=== PATIENT | male | born 1935 | race Caucasian/White ===

== ENCOUNTER 2017-03-12 07:28 | Observation (INO) | payer OTHER ==
[~2017-03-12] VITALS: Ht 167.6 cm; Wt 81.6 kg
[~2017-03-12 07:28] MED LIST: /ADVA50050; /AMLO25TA PO; /BISO10TA PO; /GLIM4TA PO; /IPRA3SP; /MOXI40TA; ACETYLCHOLINE OPHTH SOLN 1% 2ML (MIOCHOL-E) As Ordered ONE; ALBU83IN; ASPI1TAB PO; ASPI81TA3 PO; ATEN25TA PO; ATOR40TA PO; ATOR80TA59 PO; BALANCED SALT IRRIGATION SOLUTION 500ML BAG (FOR OR EYE MACHINE) As Ordered ONE; CEFUROXIME 1MG/0.1ML INTRACAMERAL INJ As Ordered ONE; CLOP75TA2 PO; CYCLOPENTOLATE 2% OPHTH SOLN 2ML BTL OS ONE; GLIP5TAB8 PO; GLUC5TAB3 PO; HEALON DUET (HEALON 10MG/ML 0.55ML & HEALON ENDOCOAT 30MG/ML 0.85ML) As Ordered ONE; INSULANT SC; ISOS30BRAN; JENT2.5T5 PO; LIDOCAINE 1% SDV 5 ML VIAL As Ordered ONE; LIDOCAINE 4% INJ 5 ML AMP OU ONE; LISI10TA4; METF500T PO; NITR0.4S; NITR2OI TOP; OFLOXACIN 0.3 % (OCUFLOX) OPTH SOL 5ML OS ONE; PANT40TA2 PO; PHENYLEPHRINE 2.5% OPHTH SOL 2ML OS ONE; POVIDONE-IODINE 5% OPHTH PREP SOL 30ML As Ordered ONE; PRED10TA2; PRED20TA; RAMI10CA PO; RAMI5CA PO; SIMV40TA2 PO; TOPR25TA; TROPICAMIDE 1% OPHTH SOLN 2ML OS ONE
[2017-03-12] MEDS ORDERED: LR 500 ML IV ONE (07:45)
[2017-03-12] MEDS ORDERED: PHENYLEPHRINE 2.5% OPHTH SOL 2ML As Ordered ONE (07:51)
[2017-03-12] MEDS ORDERED: TROPICAMIDE 1% OPHTH SOLN 2ML As Ordered ONE (07:51)
[2017-03-12] MEDS ORDERED: CYCLOPENTOLATE 2% OPHTH SOLN 2ML BTL As Ordered ONE (07:51)
[2017-03-12] MEDS ORDERED: OFLOXACIN 0.3 % (OCUFLOX) OPTH SOL 5ML As Ordered ONE (07:51)
[2017-03-12] MEDS ORDERED: hydrALAZINE INJ 20 MG/ML VIAL IV ONE ×2 (08:45→09:45)
[2017-03-12] MEDS ORDERED: NITROGLYCERIN 0.4 MG SUBL TABLET SL STA (10:24)
[2017-03-12] MEDS ORDERED: amLODIPine 5 MG TAB PO ONE (10:30)
[2017-03-12] MEDS ORDERED: ACETAMINOPHEN TAB 650MG DOSE (2X325MG) PO PRN (10:30)
[2017-03-12 10:34] LABS: BASO # 0.1 K/mm3 (0.0-0.2); BASO % 0.7 % (0.0-1.0); EOS # 0.2 K/mm3 (0.0-0.50); EOS % 2.5 % (0.0-3.0); LARGE UNSTAINED CELL # 0.1 K/mm3 (0.0-0.4); LARGE UNSTAINED CELL % 1.4 % (0.0-4.0); LYMPH # 1.4 K/mm3 (1.5-4.5); LYMPH % 15.6 % (24.0-44.0); MEAN CORPUSCULAR HEMOGLOBIN 29.8 pg (27.0-33.0); MEAN CORPUSCULAR HGB CONC 33.4 g/dl (32.0-36.5); MEAN CORPUSCULAR VOLUME 89.1 fl (80.0-96.0); MONO # 0.6 K/mm3 (0.0-0.8); MONO % 7.3 % (0.0-5.0); NEUTROPHILS # 6.1 K/mm3 (1.8-7.7); NEUTROPHILS % 72.5 % (36.0-66.0); PLATELET COUNT, AUTOMATED 209 k/mm3 (150-450); RED CELL DISTRIBUTION WIDTH 13.2 % (11.5-14.5); WHITE BLOOD COUNT 8.4 K/mm3 (4.0-10.0)
[2017-03-12 10:43] LABS: INR 0.91
[2017-03-12] MEDS: ATENOLOL 25 MG TAB PO SCH (10:45)
[2017-03-12] MEDS: LISINOPRIL 10 MG TAB PO SCH ×2 (10:53→21:17)
[2017-03-12 10:58] LABS: ALBUMIN 3.6 GM/DL (3.2-5.2); ALBUMIN/GLOBULIN RATIO 1.09 (1.00-1.93); ALKALINE PHOSPHATASE 60 U/L (45-117); ALT/SGPT 23 U/L (12-78); ANION GAP 7 MEQ/L (8-16); AST/SGOT 17 U/L (15-37); BILIRUBIN,TOTAL 0.5 MG/DL (0.2-1.0); BLOOD UREA NITROGEN 16 MG/DL (7-18); CALCIUM LEVEL 8.8 MG/DL (8.8-10.2); CARBON DIOXIDE LEVEL 28 MEQ/L (21-32); CHLORIDE LEVEL 106 MEQ/L (98-107); GLOMERULAR FILTRATION RATE > 60.0 (>35); GLUCOSE, FASTING 145 MG/DL (83-110); MAGNESIUM LEVEL 1.9 MG/DL (1.8-2.4); POTASSIUM SERUM 4.5 MEQ/L (3.5-5.1); SODIUM LEVEL 141 MEQ/L (136-145); TOTAL PROTEIN 6.9 GM/DL (6.4-8.2)
--- NOTE | 2017-03-12 12:07 | ECGEPIP ---
Stationary ECG Study [facility] Test Date: 2017-03-12 Pat Name: ALVAREZ STARKS Department: Room: - Gender: M Stationary Fireman: SOL : 1935 Requested By: Judith Jordan Order Number: [id number] Reading MD: Yara Vale Measurements Intervals [place] Rate: 62 P: 63 MO: 158 QRS: 120 QRSD: 170 T: -16 QT: 457 QTc: 466 Interpretive Statements SINUS RHYTHM RIGHT BUNDLE BRANCH BLOCK AND POSSIBLE RIGHT VENTRICULAR HYPERTROPHY new LEFT POSTERIOR FASCICULAR BLOCK NEW DIFFUSE ST T WAVE ABN NEW PULM DIS PATTERN NEW PRIOR WITH Left ventricular hypertrophy DRASTICALLY CHANGES C/W 06/24/13 Electronically Signed On 03-12-2017 12:07:48 EDT by Yara Vale
[2017-03-12] MEDS ORDERED: LORazepam 2 MG/ML VIAL (J2060) IV STA (12:31)
[2017-03-12] MEDS ORDERED: NITROGLYCERIN/D5W 100MCG/ML 25 MG in APPROPRIATE DILUENT 1 EA IV SCH (13:00)
[2017-03-12] MEDS: ISOSORBIDE DIN. (ISORDIL) 20 MG TAB PO SCH ×2 (13:45→17:49)
[2017-03-12 15:30] VITALS: BP 158/68
--- NOTE | 2017-03-12 16:20 | HPEPDOC ---
General Date of Admission Mar 12, 2017 at 16:01 Chief Complaint The patient is a 81-year-old male Presented to PACU for same day Cataract surgery, which was ultimately cancelled because of Hypertension. 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 Patient presented to PACU for a same day cataract surgery. He was initially cleared by his primary care physician Dr. Tom Sr. He was noted to have been optimized at this point. Upon arrival to the PACU today he was noted to have a SBP of 250s. Anesthesia attempted to control the blood pressure with Hydralazine 5mg IV x 2 doses, but his blood pressure failed to improve. Hospitalist team was called for evaluation at that point. Upon questioning patient has noted that he is usually compliant with medications , but had failed to take his medications this morning. He follows up with his physicians regularly. He notes that his blood pressure was controlled when he saw him last week. Review of paperwork indicated his SBP was in 160s at that time. Patient denied having any visual problems, headaches, nausea, vomiting, chest pain, palpitations, shortness of breath, cough, abdominal pain, constipation, diarrhea or urinary symptoms. He denies any muscle weakness or sensory changes. Home Medications Scheduled (Jentadueto 2.5-1000 mg) 1 Tab Tab, 2.5-1,000 MG PO DAILY, (Reported) Aspirin (Aspirin 81) 81 Mg Tab, 81 MG PO DAILY, (Reported) Atenolol (Atenolol) 25 Mg Tab, 25 MG PO DAILY, (Reported) Atorvastatin Calcium (Atorvastatin Calcium) 80 Mg Tab, 80 MG PO DAILY, (Reported ) Glipizide (Glipizide) 5 Mg Tab, 5 MG PO BID, (Reported) Insulin Glargine (Lantus) 1 Units/0.01 Ml Susp, 14 UNITS SC QAM, (Reported) Pantoprazole Sodium (Pantoprazole Sodium) 40 Mg Tab, 40 MG PO BID, (Reported) Ramipril (Ramipril) 5 Mg Cap, 5 MG PO DAILY, (Reported) Allergies Coded Allergies: No Known Allergies (Verified , 03/03/17) Past Medical History Medical History CAD (s/p CABG [16 years prior], PR and Stent [2013]), Aortic valve stenosis s/p replacement (Bovine Valve 2014), Diastolic CHF, IDDM2, DLP, Hx of CVA, RYANN (not on CPAP), Hx of Alcoholism and Hx of Pancreatitis 2/2 alcohol. Surgical History Aortic valve replacement (Bovine) 2014 Family History - Non-contributory Social History - Denies the use of illicit drugs; Quit smoking; prior history of >10 pack years , History of alcohol use in the past and pancreatitis - Denies recent travel or sick contacts - Lives with - Occupation; Retired banker Review of Symptoms Other systems Constitutional: Denies weight loss, change in appetite, or recent trauma Eyes: No visual changes or eye pain Ears, Nose, Throat: Denies nose bleeds, or difficulty swallowing Cardiovascular: Denies chest pain, sweating, or orthopnea Respiratory: Denies cough, wheezing, or shortness of breath GI: Steve nausea, vomiting, abdominal pain, diarrhea or constipation : Denies pain with urination or frequency Musculoskeletal: Denies joint pain or swelling Neuro / Psych: Denies muscle weakness or sensory loss, Notes some depression because of a loss of someone close to him recently Skin: No skin rashes noted All other review of systems negative; otherwise stated in history of present illness Vital Signs - Vitals: BP 250/80, HR 50, RR 18, Sat 96%RA, Temp 97.7F - General: Lying in bed, No acute distress, Speaking in full sentences, AAOx3 - HEENT: NC, AT, PERRLA, EOMI - CVS: RRR, +S1S2, +Systolic murmur - Lungs: Fair air entry bilaterally, Clear to auscultation, No wheezing / rales / rhonchi - Abdomen: Soft, Non-distended, Non-tender, + Bowel sounds x 4 - Extremities: + PPx4, No lower extremity edema, No calf tenderness - Neuro: No focal motor or sensory deficit - Skin: No visible rashes Laboratory Data Labs 24H Laboratory Tests 2 03/12/17 08:18: Bedside Glucose (Misc Panel) 139H 03/12/17 10:23: White Blood Count 8.4, Red Blood Count 4.99, Hemoglobin 14.8, Hematocrit 44.4, Mean Corpuscular Volume 89.1, Mean Corpuscular Hemoglobin 29.8, Mean Corpuscular Hemoglobin Concent 33.4, Red Cell Distribution Width 13.2, Platelet Count 209, Neutrophils (%) (Auto) 72.5H, Lymphocytes (%) (Auto) 15.6L, Monocytes (%) (Auto) 7.3H, Eosinophils (%) (Auto) 2.5, Basophils (%) (Auto) 0.7 , Neutrophils # (Auto) 6.1, Lymphocytes # (Auto) 1.4L, Monocytes # (Auto) 0.6, Eosinophils # (Auto) 0.2, Basophils # (Auto) 0.1, Large Unclassified Cells % 1.4 , Large Unclassified Cells # 0.1, Prothrombin Time 12.3L, Prothromb Time International Ratio 0.91, Activated Partial Thromboplast Time 29.2, Anion Gap 7L , Glomerular Filtration Rate > 60.0, Blood Urea Nitrogen 16, Creatinine 0.80, Sodium Level 141, Potassium Level 4.5, Chloride Level 106, Carbon Dioxide Level 28, Calcium Level 8.8, Aspartate Amino Transf (AST/SGOT) 17, Alanine Aminotransferase (ALT/SGPT) 23, Alkaline Phosphatase 60, Total Bilirubin 0.5, Total Protein 6.9, Albumin 3.6, Magnesium Level 1.9, Total Creatine Kinase 84, Creatine Kinase MB 4.3H, Creatine Kinase MB Relative Index 5.11H, Troponin I 0.02, Albumin/Globulin Ratio 1.09 03/12/17 12:59: Bedside Glucose (Misc Panel) 130H CBC/BMP Laboratory Tests 03/12/17 10:23 Red Blood Count 4.99, Mean Corpuscular Volume 89.1, Mean Corpuscular Hemoglobin 29.8, Mean Corpuscular Hemoglobin Concent 33.4, Red Cell Distribution Width 13.2 , Neutrophils (%) (Auto) 72.5 H, Lymphocytes (%) (Auto) 15.6 L, Monocytes (%) ( Auto) 7.3 H, Eosinophils (%) (Auto) 2.5, Basophils (%) (Auto) 0.7, Neutrophils # (Auto) 6.1, Lymphocytes # (Auto) 1.4 L, Monocytes # (Auto) 0.6, Eosinophils # (Auto) 0.2, Basophils # (Auto) 0.1, Calcium Level 8.8, Aspartate Amino Transf ( AST/SGOT) 17, Alanine Aminotransferase (ALT/SGPT) 23, Alkaline Phosphatase 60, Total Bilirubin 0.5, Total Protein 6.9, Albumin 3.6 Plan / VTE VTE Prophylaxis Ordered?: Yes Plan Plan Hypertensive urgency likely 2/2 non-compliance and component of anxiety - Patient has noted that he did not take his AM dose of atenolol - He notes his blood pressure is generally controlled outside the hospital - Denies any symptoms; no visual problems, headaches, chest pain, shortness of breath or palpitations - Physical was unrevealing - First set of troponin is negative; will continue to trend - EKG noted to have T-wave inversions at III, AvF and V6 - s/p Hydralazine 5mg IV x 2 doses - Discussed case with Dr. Poole; advised to Restart Atenolol 25, Add Lisinopril 10 BID, Norvasc 5mg Daily and Nitroglycerine 0.4mg SL - Blood pressure had improved to 180s - Added Isosorbide dintrate - Will monitor in PCU setting CAD (s/p CABG [16 years prior], PR and Stent [2013]) - c/w ASA 81 and Atorvastatin - c/w Atenolol - c/w MAMADOU inhibitor (replaced Ramipril with Lisinopril) Aortic valve stenosis s/p replacement - Bovine Valve 2014 Diastolic CHF - ECHO: 10/2015 normal LV size, moderate LVH, normal LV systolic function, moderate pulmonary HTN IDDM2 - c/w long acting insulin, will substitute with Levemir 14 unit QAM - Will start ISS DLP - c/w Atovastatin Hx of CVA - c/w ASA 81 RYANN - Not on CPAP Hx of Alcoholism Hx of Pancreatitis 2/2 alcohol GERD - c/w protonix DVT prophylaxis - Will start SCDs GAURANG MANN MD Mar 12, 2017 16:20
[2017-03-12] MEDS ORDERED: GLUCAGON FOR INJ 1 MG VIAL (J1610) SC PRN (16:30)
[2017-03-12] MEDS ORDERED: DEXTROSE 50% 50 ML SYRINGE IV PRN (16:30)
[2017-03-12] MEDS ORDERED: GLUCOSE 4 GM CHEW TABLET PO PRN (16:30)
[2017-03-12] MEDS ORDERED: ALTA1CAP3 PO (16:42)
[2017-03-12] MEDS ORDERED: ATEN25TA PO (16:42)
[2017-03-12] MEDS ORDERED: ATOR80TA59 PO (16:42)
[2017-03-12] MEDS ORDERED: JENT2.5T5 PO (16:42)
[2017-03-12] MEDS ORDERED: ASPI1TAB PO (16:42)
[2017-03-12] MEDS ORDERED: ACUV0.45 OS (16:47)
[2017-03-12] MEDS ORDERED: TOBR3OPD OS (16:47)
[2017-03-12] MEDS ORDERED: PATIENT COMMENT (16:48)
[2017-03-12] MEDS: HumaLOG INSULIN (NovoLOG) PER UNIT SC SCH (17:48)
[2017-03-12 20:00] VITALS: BP 145/63
[2017-03-12] MEDS ORDERED: HumaLOG INSULIN (NovoLOG) PER UNIT SC SCH (21:00)
[2017-03-12] MEDS: PANTOPRAZOLE 40MG TAB (PROTONIX) PO SCH (21:17)
[2017-03-12] MEDS ORDERED: SLF 3 ML SYR IV PRN (23:30)
[2017-03-12 23:59] VITALS: BP 104/53
[2017-03-13 04:00] VITALS: BP 190/78
[2017-03-13 05:02] LABS: BASO % 0.5 % (0.0-1.0); EOS # 0.2 K/mm3 (0.0-0.50); EOS % 1.8 % (0.0-3.0); LARGE UNSTAINED CELL # 0.2 K/mm3 (0.0-0.4); LARGE UNSTAINED CELL % 1.8 % (0.0-4.0); LYMPH # 1.5 K/mm3 (1.5-4.5); LYMPH % 13.7 % (24.0-44.0); MEAN CORPUSCULAR HEMOGLOBIN 30.8 pg (27.0-33.0); MEAN CORPUSCULAR HGB CONC 34.5 g/dl (32.0-36.5); MEAN CORPUSCULAR VOLUME 89.3 fl (80.0-96.0); MONO # 0.8 K/mm3 (0.0-0.8); MONO % 8.1 % (0.0-5.0); NEUTROPHILS # 7.2 K/mm3 (1.8-7.7); NEUTROPHILS % 74.1 % (36.0-66.0); PLATELET COUNT, AUTOMATED 209 k/mm3 (150-450); RED CELL DISTRIBUTION WIDTH 13.4 % (11.5-14.5); WHITE BLOOD COUNT 9.8 K/mm3 (4.0-10.0)
[2017-03-13 05:19] LABS: ALBUMIN/GLOBULIN RATIO 0.94 (1.00-1.93); ALKALINE PHOSPHATASE 48 U/L (45-117); ALT/SGPT 19 U/L (12-78); ANION GAP 4 MEQ/L (8-16); AST/SGOT 13 U/L (15-37); BILIRUBIN,TOTAL 0.7 MG/DL (0.2-1.0); BLOOD UREA NITROGEN 20 MG/DL (7-18); CALCIUM LEVEL 8.7 MG/DL (8.8-10.2); CARBON DIOXIDE LEVEL 28 MEQ/L (21-32); CHLORIDE LEVEL 109 MEQ/L (98-107); CREATININE FOR GFR 0.84 MG/DL (0.70-1.30); GLOMERULAR FILTRATION RATE > 60.0 (>35); GLUCOSE, FASTING 130 MG/DL (83-110); POTASSIUM SERUM 4.1 MEQ/L (3.5-5.1); SODIUM LEVEL 141 MEQ/L (136-145); TOTAL PROTEIN 6.2 GM/DL (6.4-8.2)
[2017-03-13] MEDS: SLF 3 ML SYR IV SCH ×2 (06:32→13:06)
[2017-03-13] MEDS: ISOSORBIDE DIN. (ISORDIL) 20 MG TAB PO SCH ×2 (06:33→10:54)
[2017-03-13 08:00] VITALS: BP 154/70
[2017-03-13] MEDS: PANTOPRAZOLE 40MG TAB (PROTONIX) PO SCH (08:22)
[2017-03-13] MEDS: HumaLOG INSULIN (NovoLOG) PER UNIT SC SCH ×2 (08:22→11:50)
[2017-03-13] MEDS: LISINOPRIL 10 MG TAB PO SCH (08:23)
[2017-03-13] MEDS: ATENOLOL 25 MG TAB PO SCH (08:23)
[2017-03-13] MEDS ORDERED: amLODIPine 5 MG TAB PO SCH (09:00)
[2017-03-13] MEDS ORDERED: ATORVASTATIN 20 MG TAB PO SCH (09:00)
[2017-03-13] MEDS ORDERED: LEVEMIR (INSULIN DETEMIR) 1 UNITS/0.01ML SC SCH (09:00)
[2017-03-13] MEDS ORDERED: ASPIRIN 81 MG ENTERIC TAB PO SCH (09:00)
[2017-03-13] MEDS ORDERED: LISINOPRIL 10 MG TAB PO ONE (10:15)
[2017-03-13] MEDS ORDERED: LISI-538 PO (11:12)
[2017-03-13] MEDS ORDERED: ISOS40TASA PO (11:12)
[2017-03-13 12:00] VITALS: BP 159/67
[2017-03-13 13:06] VITALS: BP 159/67
[2017-03-13 13:50] VITALS: BP 142/66
[2017-03-13] MEDS ORDERED: HYDR10TAB PO (13:57)
[2017-03-13] MEDS ORDERED: AMLO5TAB2 PO (13:58)
[2017-03-13] MEDS ORDERED: **hydrALAZINE** 10 MG TAB PO SCH (14:00)
--- NOTE | 2017-03-13 14:57 | DSES ---
DATE OF ADMISSION: 03/12/2017 DATE OF DISCHARGE: 03/13/2017 ATTENDING PHYSICIAN: Aram Velasquez MD PRIMARY CARE PHYSICIAN: Jarad Sr MD REFERRING PHYSICIAN: None. CONSULTING PHYSICIAN: None. CONDITION ON DISCHARGE: Stable. FINAL DIAGNOSIS: Hypertensive urgency. PROCEDURES: None. HISTORY OF PRESENT ILLNESS: Patient is an 81-year-old male with a past medical history of coronary artery disease status post coronary artery bypass graft (CABG) 16 years prior, myocardial infarction (GA) and stent in 2013, aortic valve stenosis status post replacement with bovine valve in 2014, diastolic congestive heart failure (CHF), insulin-dependent diabetes mellitus type 2, dyslipidemia, history of cerebrovascular accident (CVA), obstructive sleep apnea not on continuous positive airway pressure (CPAP), history of alcoholism, and history of pancreatitis secondary to alcoholism. Patient presented to postanesthesia care unit (PACU) for same-day cataract surgery. He was initially cleared by his primary care physician, Dr. Jarad Sr. He was optimized at that point. Upon arrival to the PACU, he was noted to have a systolic blood pressure in the 250s. Anesthesia attempted to control the blood pressure with hydralazine 5 mg IV times two doses; however, it failed to improve his blood pressure. Hospitalist team was called for further evaluation. HOSPITAL COURSE: 1. Hypertensive urgency, likely secondary to noncompliance and component of anxiety. Patient noted that he did not take his morning medications upon arrival. His blood pressure generally outside of the hospital is controlled in the 160s. He denies any visual problems, headaches, chest pains, shortness of breath, or history of palpitations. Physical was unrevealing. EKG was consistent with T wave inversions in III, aVF, and V6. Troponin times three sets have been negative. Case was discussed with Dr. Poole. Patient's medication doses were adjusted from outpatient, and new medications were added. Upon discharge, patient's blood pressure was controlled with systolic of 140s and patient was advised to followup with his primary care provider. 2. Coronary artery disease status post CABG 16 years prior and GA and stent in 2013. Continue with aspirin 81 mg, atorvastatin, atenolol, and MAMADOU inhibitor. 3. Aortic valve stenosis status post replacement with bovine valve in 2014. 4. Diastolic CHF. Echocardiogram in 10/2015 revealed normal left ventricular size, moderate left ventricular hypertrophy, normal left ventricular systolic function, moderate pulmonary hypertension. 5. Insulin-dependent diabetes mellitus type 2. 6. Dyslipidemia. Continue atorvastatin. 7. History of CVA. Continue with aspirin. 8. Obstructive sleep apnea. Not on CPAP. 9. History of alcoholism. 10. History of pancreatitis secondary to alcoholism. 11. Gastroesophageal reflux disease (GERD). Continue with Protonix. 12. Deep venous thrombosis (DVT) prophylaxis. Continue with sleeve compression devices. DISCHARGE MEDICATION: Patient is being discharged home with the following medication list: Continued medications include: - aspirin 81 mg by mouth daily - atenolol 25 mg by mouth daily - atorvastatin 80 mg by mouth nightly - glipizide 5 mg by mouth twice a day - insulin glargine 14 mg subcutaneously every morning - ketorolac one drop in each eye four times a day - Protonix 40 mg by mouth twice a day - tobramycin one drop in each eye four times a day Stopped medications include: - ramipril 5 mg by mouth daily New medications prescribed include: - amlodipine 5 mg by mouth daily - hydralazine 25 mg by mouth every 8 hours - lisinopril 20 mg by mouth twice a day DISCHARGE INSTRUCTIONS: Patient has been advised to followup with his primary care provider within the next 7 days. He was advised to remain compliant with treatment plan, medications, and return to the emergency room if he experiences any problems. TIME SPENT ON DISCHARGE: 35 minutes. Edited: jr 03/14/2017 [id number]
[2017-03-13] MEDS ORDERED: LISINOPRIL 20 MG TAB PO SCH (21:00)
[2017-04-09] MEDS ORDERED: SPIR25TA2 PO (14:19)
[2017-04-09] MEDS ORDERED: FURO40TA2 PO (14:19)
[2017-04-09] MEDS ORDERED: METF500T13 PO (14:19)
== END 2017-03-13 15:52 | disposition home or self-care (01) ==
LOC: M SDC 07:28 → M PCU 15:14 → M SDC 16:00 → M PCU 16:01 → M ED INP 16:01
PROVIDERS: ADMIT Internal Medicine; ATTEND Internal Medicine
DX: I16.0 Hypertensive urgency (principal); Z53.09 Procedure and treatment not carried out because of other contraindication; H25.12 Age-related nuclear cataract, left eye; I25.10 Atherosclerotic heart disease of native coronary artery without angina pectoris; Z95.1 Presence of aortocoronary bypass graft; E11.9 Type 2 diabetes mellitus without complications; Z79.4 Long term (current) use of insulin; E78.5 Hyperlipidemia, unspecified; Z98.61 Coronary angioplasty status; Z86.73 Personal history of transient ischemic attack (TIA), and cerebral infarction without residual deficits; G47.33 Obstructive sleep apnea (adult) (pediatric); I25.2 Old myocardial infarction; Z95.2 Presence of prosthetic heart valve; F10.21 Alcohol dependence, in remission; I35.0 Nonrheumatic aortic (valve) stenosis; I50.30 Unspecified diastolic (congestive) heart failure; F41.9 Anxiety disorder, unspecified; Z79.82 Long term (current) use of aspirin; Z79.899 Other long term (current) drug therapy
CPT/HCPCS: 36415; 66984; 80053; 82550; 82553; 83735; 84484; 85025; 85610; 85730; 93005; G0378; J2060

== ENCOUNTER 2017-04-16 10:46 | Day surgery (SDC) | payer OTHER ==
[~2017-04-16] VITALS: Ht 167.6 cm; Wt 83.9 kg
[~2017-04-16 10:46] MED LIST changes: +ACETAMINOPHEN 325 MG TAB PO PRN; +ACUV0.45 OS; +ALTA1CAP3 PO; +AMLO5TAB2 PO; +FURO40TA2 PO; +HYDR10TAB PO; +ISOS40TASA PO; +LIDOCAINE 3.5 % 1ML OPHTH TOPICAL GEL OU ONE; -LIDOCAINE 4% INJ 5 ML AMP OU ONE; +LISI-538 PO; +METF500T13 PO; +PATIENT COMMENT; +PROPARACAINE 0.5% OPHTH SOL 15ML OS PRN; +SPIR25TA2 PO; +TOBR3OPD OS
[2017-04-16] MEDS ORDERED: D5W/0.2% SODIUM CHLORIDE 250 ML IV ONE (11:00)
[2017-04-16] MEDS ORDERED: fentaNYL 100 MCG/2 ML INJECTION (J3010) As Ordered ONE (12:00)
[2017-04-16] MEDS ORDERED: MIDAZOLAM INJ 2 MG/2 ML VIAL (J2250) As Ordered ONE (12:00)
[2017-04-16] MEDS ORDERED: TETRACAINE 0.5% OPHTH SOLN 4ML As Ordered ONE (12:04)
[2017-04-16 12:30] VITALS: BP 175/77
[2017-04-16] MEDS ORDERED: AcetaZOLAMIDE 500 MG ER CAP PO ONE (12:45)
[2017-04-16] MEDS ORDERED: TRIMETHOBENZAMIDE 300 MG CAP PO PRN (12:45)
[2017-04-16] MEDS ORDERED: KETOROLAC 0.5% OPHTH SOLN OS ONE (12:45)
--- NOTE | 2017-04-17 13:25 | RO ---
DATE OF PROCEDURE: 04/16/2017 PREPROCEDURE DIAGNOSIS: Age related nuclear cataract, left eye. POSTPROCEDURE DIAGNOSIS: Age related nuclear cataract, left eye. PROCEDURE: Phacoemulsification and posterior chamber intraocular lens implantation, left eye. The lens used was AU00T0, 21.5 diopter. SURGEON: Judith Jordan MD PAINTING MANAGER: ANESTHESIA: Topical with sedation. DESCRIPTION OF PROCEDURE: The patient was prepped and draped in the usual fashion. A lid speculum was placed between the lids. The eye was fixated. A stab incision was made to the anterior chamber, and 1% non-preserved lidocaine was instilled. Then, viscoelastic was instilled. The eye was re-fixated. A 2.75 mm sapphire keratome was used to make a clear corneal temporal limbal incision. Capsulorrhexis was begun with a 30-gauge bent needle and then carried out in a circular fashion with capsulorrhexis forceps. The lens was hydrodissected, and then the phacoemulsification unit was used to make a groove in the nucleus in two meridians. The nucleus was then cracked into four quadrants. Each quadrant was removed with the phacoemulsification unit. Any remaining cortex was removed with the irrigation and aspiration (I and A) unit. Capsular bag was refilled with viscoelastic. A posterior chamber intraocular lens was placed in the capsular bag without difficulty. Any remaining viscoelastic was removed with the I and A unit. The wound was hydrated, and Miochol and cefuroxime were instilled into the anterior chamber. The patient tolerated the procedure well and went to the recovery room in stable condition.
== END 2017-04-16 12:50 | disposition home or self-care (01) ==
LOC: M SDC 10:46
PROVIDERS: ATTEND Ophthalmology
DX: H25.12 Age-related nuclear cataract, left eye (principal); I25.10 Atherosclerotic heart disease of native coronary artery without angina pectoris; I10 Essential (primary) hypertension; I25.2 Old myocardial infarction; E78.5 Hyperlipidemia, unspecified; E11.9 Type 2 diabetes mellitus without complications; Z79.4 Long term (current) use of insulin; K21.9 Gastro-esophageal reflux disease without esophagitis; K57.32 Diverticulitis of large intestine without perforation or abscess without bleeding; F41.9 Anxiety disorder, unspecified; Z98.61 Coronary angioplasty status; Z87.891 Personal history of nicotine dependence; Z86.73 Personal history of transient ischemic attack (TIA), and cerebral infarction without residual deficits; Z79.82 Long term (current) use of aspirin; Z79.899 Other long term (current) drug therapy; J45.909 Unspecified asthma, uncomplicated
CPT/HCPCS: 66984; J2250; J3010; V2632

== ENCOUNTER 2017-05-07 08:33 | Day surgery (SDC) | payer OTHER ==
[~2017-05-07] VITALS: Ht 167.6 cm; Wt 83.9 kg
[~2017-05-07 08:33] MED LIST changes: -CYCLOPENTOLATE 2% OPHTH SOLN 2ML BTL OS ONE; +CYCLOPENTOLATE 2% OPHTH SOLN 2ML BTL XX ONE; +LR 1,000 ML IV ONE; -OFLOXACIN 0.3 % (OCUFLOX) OPTH SOL 5ML OS ONE; +OFLOXACIN 0.3 % (OCUFLOX) OPTH SOL 5ML XX ONE; -PHENYLEPHRINE 2.5% OPHTH SOL 2ML OS ONE; +PHENYLEPHRINE 2.5% OPHTH SOL 2ML XX ONE; +PROPARACAINE 0.5% OPHTH SOL 15ML OD PRN; -PROPARACAINE 0.5% OPHTH SOL 15ML OS PRN; -TROPICAMIDE 1% OPHTH SOLN 2ML OS ONE; +TROPICAMIDE 1% OPHTH SOLN 2ML XX ONE
[2017-05-07] MEDS ORDERED: fentaNYL 100 MCG/2 ML INJECTION (J3010) As Ordered ONE (10:51)
[2017-05-07] MEDS ORDERED: MIDAZOLAM INJ 2 MG/2 ML VIAL (J2250) As Ordered ONE (10:51)
[2017-05-07 11:15] VITALS: BP 174/75
[2017-05-07] MEDS ORDERED: AcetaZOLAMIDE 500 MG ER CAP PO ONE (11:15)
[2017-05-07] MEDS ORDERED: KETOROLAC 0.5% OPHTH SOLN OD ONE (11:15)
[2017-05-07] MEDS ORDERED: TRIMETHOBENZAMIDE 300 MG CAP PO PRN (11:15)
--- NOTE | 2017-05-07 11:16 | RO ---
DATE OF PROCEDURE: 05/07/2017 PREPROCEDURE DIAGNOSIS: Age related nuclear cataract right eye. POSTPROCEDURE DIAGNOSIS: Age related nuclear cataract right eye. PROCEDURE: Phacoemulsification and posterior chamber intraocular lens implantation right eye. The lens used was AU00T0, 22.0 diopters. SURGEON: Judith Jordan MD ESCORT PATIENTS: ANESTHESIA: Topical with sedation. DESCRIPTION OF PROCEDURE: The patient was prepped and draped in the usual fashion. A lid speculum was placed between the lids. The eye was fixated. A stab incision was made to the anterior chamber, and 1% non-preserved lidocaine was instilled. Then, viscoelastic was instilled. The eye was re-fixated. A 2.75 mm sapphire keratome was used to make a clear corneal temporal limbal incision. Capsulorrhexis was begun with a 30-gauge bent needle and then carried out in a circular fashion with capsulorrhexis forceps. The lens was hydrodissected, and then the phacoemulsification unit was used to make a groove in the nucleus in two meridians. The nucleus was then cracked into four quadrants. Each quadrant was removed with the phacoemulsification unit. Any remaining cortex was removed with the irrigation and aspiration (I and A) unit. Capsular bag was refilled with viscoelastic. A posterior chamber intraocular lens was placed in the capsular bag without difficulty. Any remaining viscoelastic was removed with the I and A unit. The wound was hydrated, and Miochol and cefuroxime were instilled into the anterior chamber. The patient tolerated the procedure well and went to the recovery room in stable condition.
== END 2017-05-07 11:44 | disposition home or self-care (01) ==
LOC: M SDC 08:33
PROVIDERS: ATTEND Ophthalmology
DX: H25.11 Age-related nuclear cataract, right eye (principal); I25.10 Atherosclerotic heart disease of native coronary artery without angina pectoris; I25.2 Old myocardial infarction; I10 Essential (primary) hypertension; E78.5 Hyperlipidemia, unspecified; E10.9 Type 1 diabetes mellitus without complications; J45.909 Unspecified asthma, uncomplicated; Z79.4 Long term (current) use of insulin; Z98.61 Coronary angioplasty status; K21.9 Gastro-esophageal reflux disease without esophagitis; K57.32 Diverticulitis of large intestine without perforation or abscess without bleeding; F41.9 Anxiety disorder, unspecified; Z86.73 Personal history of transient ischemic attack (TIA), and cerebral infarction without residual deficits; Z87.891 Personal history of nicotine dependence; Z79.899 Other long term (current) drug therapy
CPT/HCPCS: 66984; J2250; J3010; V2632

== ENCOUNTER → 2017-12-29 | Outpatient (CLI) | payer OTHER ==
[2017-12-29 16:43] LABS: BASO # 0.1 10^3/uL (0.0-0.2); BASO % 1.2 % (0.0-1.0); EOS # 0.2 10^3/uL (0.0-0.50); HEMATOCRIT 39.1 % (42.0-52.0); HEMOGLOBIN 13.1 g/dl (13.5-17.5); IMMATURE GRANULOCYTE % 0.2 % (0-3.0); LYMPH # 1.8 10^3/uL (1.5-4.5); LYMPH % 22.1 % (24.0-44.0); MEAN CORPUSCULAR HEMOGLOBIN 29.4 pg (27.0-33.0); MEAN CORPUSCULAR HGB CONC 33.5 g/dl (32.0-36.5); MEAN CORPUSCULAR VOLUME 87.7 fl (80.0-96.0); MONO # 0.9 10^3/uL (0.0-0.8); MONO % 10.8 % (0.0-5.0); NEUTROPHILS # 5.1 10^3/uL (1.8-7.7); NEUTROPHILS % 62.7 % (36.0-66.0); PLATELET COUNT, AUTOMATED 236 10^3/uL (150-450); RED BLOOD COUNT 4.46 10^6/uL (4.30-6.10); RED CELL DISTRIBUTION WIDTH 13.2 % (11.5-14.5); WHITE BLOOD COUNT 8.1 10^3/uL (4.0-10.0)
== END ==
LOC: M WUC 14:35
DX: R05 Cough (principal); I51.7 Cardiomegaly
CPT/HCPCS: 85025

== ENCOUNTER 2018-03-05 10:28 | Emergency (ER) | payer OTHER ==
[2018-03-05] MEDS ORDERED: NITROGLYCERIN 0.4 MG SUBL TABLET SL (10:45)
[2018-03-05 11:35] LABS: BASO # 0.1 10^3/uL (0.0-0.2); BASO % 0.6 % (0.0-1.0); EOS % 0.3 % (0.0-3.0); HEMATOCRIT 36.5 % (42.0-52.0); HEMOGLOBIN 12.5 g/dl (13.5-17.5); IMMATURE GRANULOCYTE % 0.3 % (0-3.0); LYMPH % 10.3 % (24.0-44.0); MEAN CORPUSCULAR HEMOGLOBIN 29.3 pg (27.0-33.0); MEAN CORPUSCULAR HGB CONC 34.2 g/dl (32.0-36.5); MEAN CORPUSCULAR VOLUME 85.5 fl (80.0-96.0); MONO # 1.2 10^3/uL (0.0-0.8); MONO % 11.9 % (0.0-5.0); NEUTROPHILS # 7.6 10^3/uL (1.8-7.7); NEUTROPHILS % 76.6 % (36.0-66.0); PLATELET COUNT, AUTOMATED 210 10^3/uL (150-450); RED BLOOD COUNT 4.27 10^6/uL (4.30-6.10); RED CELL DISTRIBUTION WIDTH 12.6 % (11.5-14.5); WHITE BLOOD COUNT 9.9 10^3/uL (4.0-10.0)
[2018-03-05 11:50] LABS: INR 0.97
[2018-03-05 11:57] LABS: ALBUMIN 2.9 GM/DL (3.2-5.2); ALBUMIN/GLOBULIN RATIO 0.81 (1.00-1.93); ALKALINE PHOSPHATASE 76 U/L (45-117); ALT/SGPT 26 U/L (12-78); ANION GAP 4 MEQ/L (8-16); AST/SGOT 13 U/L (7-37); BILIRUBIN,DIRECT 0.1 MG/DL (0.0-0.2); BILIRUBIN,TOTAL 0.5 MG/DL (0.2-1.0); BLOOD UREA NITROGEN 10 MG/DL (7-18); CALCIUM LEVEL 8.7 MG/DL (8.8-10.2); CARBON DIOXIDE LEVEL 32 MEQ/L (21-32); CHLORIDE LEVEL 101 MEQ/L (98-107); CPK CREATINE PHOSPHOKINASE 59 U/L (39-308); CREATININE FOR GFR 0.95 MG/DL (0.70-1.30); GLOMERULAR FILTRATION RATE > 60.0 (>35); GLUCOSE, FASTING 287 MG/DL (70-100); LIPASE 105 U/L (73-393); POTASSIUM SERUM 4.4 MEQ/L (3.5-5.1); SODIUM LEVEL 137 MEQ/L (136-145); TOTAL PROTEIN 6.5 GM/DL (6.4-8.2); TROPONIN I < 0.02 NG/ML (< 0.10)
[2018-03-05 12:03] LABS: CK-MB VALUE MASS 2.3 NG/ML (<3.6); MB/CK RELATIVE INDEX 3.89 (< OR =4); NT-PRO BNP 1414 PG/ML (<450)
[2018-03-05] MEDS: LORazepam 0.5 MG TAB PO (15:28)
[2018-03-05] MEDS ORDERED: ISOVUE-370 76% 100ML VIAL (Q9967) As Ordered (15:38)
[2018-03-05 16:24] LABS: CPK CREATINE PHOSPHOKINASE 46 U/L (39-308); TROPONIN I < 0.02 NG/ML (< 0.10)
[2018-03-05 16:25] LABS: CK-MB VALUE MASS 1.8 NG/ML (<3.6); MB/CK RELATIVE INDEX 3.91 (< OR =4)
== END 2018-03-05 17:29 | disposition home or self-care (01) ==
LOC: M ED 10:28
DX: J18.9 Pneumonia, unspecified organism (principal); R07.9 Chest pain, unspecified; R91.8 Other nonspecific abnormal finding of lung field; Z90.2 Acquired absence of lung [part of]; I51.7 Cardiomegaly; I45.10 Unspecified right bundle-branch block; R00.1 Bradycardia, unspecified; I44.0 Atrioventricular block, first degree; I50.9 Heart failure, unspecified; I25.2 Old myocardial infarction; Z86.73 Personal history of transient ischemic attack (TIA), and cerebral infarction without residual deficits; G47.30 Sleep apnea, unspecified; Z95.1 Presence of aortocoronary bypass graft; Z79.82 Long term (current) use of aspirin; Z79.4 Long term (current) use of insulin; Z79.899 Other long term (current) drug therapy
CPT/HCPCS: Q9967

== ENCOUNTER → 2018-04-06 | Outpatient (REF) | payer OTHER ==
[2018-04-06 13:11] LABS: IRON (FE) 86 UG/DL (65-175); PERCENT SATURATION 28.4 % (19.7-50.0); TOTAL IRON BINDING CAPACITY 303 UG/DL (250-450)
== END ==
LOC: M LAB REF 12:18
DX: D64.9 Anemia, unspecified (principal)
CPT/HCPCS: 83550

== ENCOUNTER 2018-06-28 18:13 | Inpatient (IN) | payer OTHER ==
[2018-06-28 18:37] LABS: BASO # 0.1 10^3/uL (0.0-0.2); BASO % 0.8 % (0.0-1.0); EOS # 0.2 10^3/uL (0.0-0.50); EOS % 2.5 % (0.0-3.0); HEMATOCRIT 41.9 % (42.0-52.0); HEMOGLOBIN 14.2 g/dl (13.5-17.5); IMMATURE GRANULOCYTE % 0.2 % (0-3.0); LYMPH # 2.1 10^3/uL (1.5-4.5); MEAN CORPUSCULAR HGB CONC 33.9 g/dl (32.0-36.5); MEAN CORPUSCULAR VOLUME 88.6 fl (80.0-96.0); MONO # 1.2 10^3/uL (0.0-0.8); MONO % 14.4 % (0.0-5.0); NEUTROPHILS # 4.8 10^3/uL (1.8-7.7); NEUTROPHILS % 57.1 % (36.0-66.0); PLATELET COUNT, AUTOMATED 247 10^3/uL (150-450); RED BLOOD COUNT 4.73 10^6/uL (4.30-6.10); RED CELL DISTRIBUTION WIDTH 13.1 % (11.5-14.5); WHITE BLOOD COUNT 8.3 10^3/uL (4.0-10.0)
[2018-06-28 18:52] LABS: BEDSIDE GLUCOSE 259 MG/DL (83-110)
[2018-06-28 18:54] LABS: INR 0.84; PROTHROMBIN TIME 11.6 SECONDS (12.1-14.4)
[2018-06-28] MEDS: hydrALAZINE INJ 20 MG/ML VIAL IV ×2 (19:36→20:22)
[2018-06-28 19:46] LABS: ALBUMIN 3.3 GM/DL (3.2-5.2); ALBUMIN/GLOBULIN RATIO 1.03 (1.00-1.93); ALKALINE PHOSPHATASE 74 U/L (45-117); ALT/SGPT 24 U/L (12-78); ANION GAP 5 MEQ/L (8-16); AST/SGOT 21 U/L (7-37); BILIRUBIN,DIRECT < 0.1 MG/DL (0.0-0.2); BILIRUBIN,TOTAL 0.3 MG/DL (0.2-1.0); BLOOD UREA NITROGEN 20 MG/DL (7-18); CALCIUM LEVEL 8.5 MG/DL (8.8-10.2); CARBON DIOXIDE LEVEL 29 MEQ/L (21-32); CHLORIDE LEVEL 106 MEQ/L (98-107); CPK CREATINE PHOSPHOKINASE 79 U/L (39-308); CREATININE FOR GFR 1.06 MG/DL (0.70-1.30); FREE T4 1.11 NG/DL (0.76-1.46); GLOMERULAR FILTRATION RATE > 60.0 (>35); GLUCOSE, FASTING 287 MG/DL (70-100); MB/CK RELATIVE INDEX 4.43 (< OR =4); POTASSIUM SERUM 4.4 MEQ/L (3.5-5.1); SODIUM LEVEL 140 MEQ/L (136-145); TOTAL PROTEIN 6.5 GM/DL (6.4-8.2); TROPONIN I < 0.02 NG/ML (< 0.10)
[2018-06-28] MEDS: NITROGLYCERIN 2% OINT 1 GM *U/D* PKT TOP (20:21)
[2018-06-28] MEDS: ASPIRIN 81 MG CHEW TABLET PO ×2 (20:22→20:31)
[2018-06-28 22:51] LABS: CPK CREATINE PHOSPHOKINASE 57 U/L (39-308); MB/CK RELATIVE INDEX 5.44 (< OR =4); TROPONIN I < 0.02 NG/ML (< 0.10)
[2018-06-29] MEDS ORDERED: GLUCAGON FOR INJ 1 MG VIAL (J1610) SC (01:30)
[2018-06-29] MEDS ORDERED: GLUCOSE 4 GM CHEW TABLET PO (01:30)
[2018-06-29] MEDS ORDERED: DEXTROSE 50% 50 ML SYRINGE IV (01:30)
[2018-06-29 07:57] LABS: BEDSIDE GLUCOSE 239 MG/DL (83-110)
[2018-06-29] MEDS: ASPIRIN 81 MG ENTERIC TAB PO (08:40)
[2018-06-29] MEDS: FUROSEMIDE 40 MG TAB PO (08:40)
[2018-06-29] MEDS: SPIRONOLACTONE 25 MG TAB PO (08:40)
[2018-06-29] MEDS: LEVEMIR (INSULIN DETEMIR) 1 UNITS/0.01ML SC (08:40)
[2018-06-29] MEDS: glipiZIDE (GLUCOTROL) 5 MG TAB PO ×2 (08:40→18:51)
[2018-06-29] MEDS: LISINOPRIL 20 MG TAB PO ×2 (08:41→21:00)
[2018-06-29] MEDS: amLODIPine 10 MG TAB PO (08:41)
[2018-06-29] MEDS: HumaLOG INSULIN (NovoLOG) PER UNIT SC ×4 (08:41→21:00)
[2018-06-29] MEDS ORDERED: PROHANCE 279.3MG/ML 15ML VIAL (A9576) As Ordered ×2 (10:23)
[2018-06-29 12:56] LABS: BEDSIDE GLUCOSE 195 MG/DL (83-110)
[2018-06-29 15:30] LABS: HEMATOCRIT 40.9 % (42.0-52.0); HEMOGLOBIN 13.9 g/dl (13.5-17.5); MEAN CORPUSCULAR HEMOGLOBIN 29.5 pg (27.0-33.0); MEAN CORPUSCULAR VOLUME 86.8 fl (80.0-96.0); PLATELET COUNT, AUTOMATED 243 10^3/uL (150-450); RED BLOOD COUNT 4.71 10^6/uL (4.30-6.10); RED CELL DISTRIBUTION WIDTH 13.1 % (11.5-14.5); WHITE BLOOD COUNT 9.5 10^3/uL (4.0-10.0)
[2018-06-29 15:52] LABS: MAGNESIUM LEVEL 1.9 MG/DL (1.8-2.4)
[2018-06-29 15:53] LABS: ANION GAP 7 MEQ/L (8-16); BLOOD UREA NITROGEN 18 MG/DL (7-18); CARBON DIOXIDE LEVEL 28 MEQ/L (21-32); CHLORIDE LEVEL 106 MEQ/L (98-107); CREATININE FOR GFR 1.03 MG/DL (0.70-1.30); GLOMERULAR FILTRATION RATE > 60.0 (>35); GLUCOSE, FASTING 180 MG/DL (70-100); POTASSIUM SERUM 4.5 MEQ/L (3.5-5.1); SODIUM LEVEL 141 MEQ/L (136-145)
[2018-06-29 15:59] LABS: CHOLESTEROL LEVEL 260 MG/DL (<200); CHOLESTEROL RISK RATIO 6.666 (<5); HDL CHOLESTEROL 39 MG/DL (>40); LDL CHOLESTEROL 165 MG/DL (<100); NON-HDL-C 221 MG/DL; TRIGLYCERIDES LEVEL 279 MG/DL (<150)
[2018-06-29 16:02] LABS: TROPONIN I < 0.02 NG/ML (< 0.10)
[2018-06-29 16:05] LABS: ESTIMATED AVERAGE GLUCOSE 220 MG/DL (60-110); HEMOGLOBIN A1c 9.3 %
[2018-06-29] MEDS ORDERED: SLF 3 ML SYR IV (16:45)
[2018-06-29 18:35] LABS: BEDSIDE GLUCOSE 262 MG/DL (83-110)
[2018-06-29] MEDS: ATORVASTATIN 20 MG TAB PO (21:50)
[2018-06-29 21:51] LABS: BEDSIDE GLUCOSE 153 MG/DL (83-110)
[2018-06-29] MEDS: SLF 3 ML SYR IV (21:51)
[2018-06-30] MEDS: ACETAMINOPHEN TAB 650MG DOSE (2X325MG) PO ×2 (00:59→19:28)
[2018-06-30] MEDS: SLF 3 ML SYR IV ×3 (05:24→22:00)
[2018-06-30 07:38] LABS: BEDSIDE GLUCOSE 187 MG/DL (83-110)
[2018-06-30] MEDS: LISINOPRIL 20 MG TAB PO ×2 (07:53→19:31)
[2018-06-30] MEDS: FUROSEMIDE 40 MG TAB PO (07:53)
[2018-06-30] MEDS: ASPIRIN 81 MG ENTERIC TAB PO (07:54)
[2018-06-30] MEDS: amLODIPine 10 MG TAB PO (07:54)
[2018-06-30] MEDS: glipiZIDE (GLUCOTROL) 5 MG TAB PO ×2 (07:54→17:47)
[2018-06-30] MEDS: SPIRONOLACTONE 25 MG TAB PO (07:54)
[2018-06-30] MEDS: LEVEMIR (INSULIN DETEMIR) 1 UNITS/0.01ML SC (07:55)
[2018-06-30] MEDS: HumaLOG INSULIN (NovoLOG) PER UNIT SC ×4 (07:55→19:31)
[2018-06-30 11:30] LABS: BEDSIDE GLUCOSE 234 MG/DL (83-110)
[2018-06-30] MEDS: FLUBLOK(EGG FREE)(QUAD)INFLUENZA VACC 0.5ML SYRINGE (90682)18YRS&OLDER IM (12:27)
[2018-06-30 16:51] LABS: BEDSIDE GLUCOSE 146 MG/DL (83-110)
[2018-06-30 19:24] LABS: BEDSIDE GLUCOSE 152 MG/DL (83-110)
[2018-06-30] MEDS: ATORVASTATIN 20 MG TAB PO (19:31)
[2018-07-01] MEDS: ACETAMINOPHEN TAB 650MG DOSE (2X325MG) PO
[2018-07-01] MEDS: SLF 3 ML SYR IV (05:38)
[2018-07-01 07:08] LABS: HEMATOCRIT 40.2 % (42.0-52.0); HEMOGLOBIN 13.6 g/dl (13.5-17.5); MEAN CORPUSCULAR HEMOGLOBIN 29.3 pg (27.0-33.0); MEAN CORPUSCULAR HGB CONC 33.8 g/dl (32.0-36.5); MEAN CORPUSCULAR VOLUME 86.6 fl (80.0-96.0); PLATELET COUNT, AUTOMATED 238 10^3/uL (150-450); RED BLOOD COUNT 4.64 10^6/uL (4.30-6.10); RED CELL DISTRIBUTION WIDTH 13.1 % (11.5-14.5); WHITE BLOOD COUNT 8.4 10^3/uL (4.0-10.0)
[2018-07-01 07:25] LABS: ANION GAP 4 MEQ/L (8-16); BLOOD UREA NITROGEN 19 MG/DL (7-18); CALCIUM LEVEL 8.5 MG/DL (8.8-10.2); CARBON DIOXIDE LEVEL 27 MEQ/L (21-32); CHLORIDE LEVEL 106 MEQ/L (98-107); CREATININE FOR GFR 0.89 MG/DL (0.70-1.30); GLOMERULAR FILTRATION RATE > 60.0 (>35); GLUCOSE, FASTING 203 MG/DL (70-100); POTASSIUM SERUM 4.4 MEQ/L (3.5-5.1); SODIUM LEVEL 137 MEQ/L (136-145)
[2018-07-01] MEDS: HumaLOG INSULIN (NovoLOG) PER UNIT SC ×2 (07:48→12:16)
[2018-07-01] MEDS: glipiZIDE (GLUCOTROL) 5 MG TAB PO (07:48)
[2018-07-01] MEDS: LEVEMIR (INSULIN DETEMIR) 1 UNITS/0.01ML SC (09:20)
[2018-07-01] MEDS: amLODIPine 10 MG TAB PO (09:21)
[2018-07-01] MEDS: SPIRONOLACTONE 25 MG TAB PO (09:22)
[2018-07-01] MEDS: ASPIRIN 81 MG ENTERIC TAB PO (09:22)
[2018-07-01] MEDS: LISINOPRIL 20 MG TAB PO (09:22)
[2018-07-01] MEDS: FUROSEMIDE 40 MG TAB PO (09:22)
[2018-07-01 12:13] LABS: BEDSIDE GLUCOSE 188 MG/DL (83-110)
== END 2018-07-01 14:05 | disposition home or self-care (01) | DRG 69 ==
LOC: M ED INP 06-29 01:21 → M PCU 06-29 15:57 → M ED 18:13
DX: G45.9 Transient cerebral ischemic attack, unspecified (principal); I10 Essential (primary) hypertension; E11.9 Type 2 diabetes mellitus without complications; R00.1 Bradycardia, unspecified; I25.10 Atherosclerotic heart disease of native coronary artery without angina pectoris; E78.5 Hyperlipidemia, unspecified; Z86.73 Personal history of transient ischemic attack (TIA), and cerebral infarction without residual deficits; Z79.82 Long term (current) use of aspirin; Z79.899 Other long term (current) drug therapy

== ENCOUNTER → 2018-12-07 | Outpatient (REF) | payer OTHER ==
[~2018-12-07] MED LIST changes: -/ADVA50050; -/AMLO25TA PO; -/BISO10TA PO; -/GLIM4TA PO; -/IPRA3SP; -/MOXI40TA; -ACETAMINOPHEN 325 MG TAB PO PRN; -ACETYLCHOLINE OPHTH SOLN 1% 2ML (MIOCHOL-E) As Ordered ONE; +ADVA1AER2; +AK-T0.3S OS; +AMAR1TAB6 PO; +AMLO10TA5 PO; -AMLO5TAB2 PO; +AMLO5TAB6 PO; +ASPI-222 PO; +ATRO1SOL13; +AUGM875T28 PO; +AVEL1TAB2; -BALANCED SALT IRRIGATION SOLUTION 500ML BAG (FOR OR EYE MACHINE) As Ordered ONE; -CEFUROXIME 1MG/0.1ML INTRACAMERAL INJ As Ordered ONE; -CYCLOPENTOLATE 2% OPHTH SOLN 2ML BTL XX ONE; -HEALON DUET (HEALON 10MG/ML 0.55ML & HEALON ENDOCOAT 30MG/ML 0.85ML) As Ordered ONE; -LIDOCAINE 1% SDV 5 ML VIAL As Ordered ONE; -LIDOCAINE 3.5 % 1ML OPHTH TOPICAL GEL OU ONE; -LR 1,000 ML IV ONE; +METO-1; +NORV2TAB PO; -OFLOXACIN 0.3 % (OCUFLOX) OPTH SOL 5ML XX ONE; -PANT40TA2 PO; +PANT40TA3 PO; -PHENYLEPHRINE 2.5% OPHTH SOL 2ML XX ONE; -POVIDONE-IODINE 5% OPHTH PREP SOL 30ML As Ordered ONE; -PROPARACAINE 0.5% OPHTH SOL 15ML OD PRN; +RAMI1CAP24 PO; -RAMI5CA PO; +SPIR-10 PO; -SPIR25TA2 PO; -TOBR3OPD OS; -TOPR25TA; -TROPICAMIDE 1% OPHTH SOLN 2ML XX ONE; +ZEBE1TAB PO
[2018-12-07 17:17] LABS: C REACTIVE PROTEIN QUANTITATIV < 0.30 MG/DL (0.00-0.30); URIC ACID 3.8 MG/DL (3.5-7.2)
== END ==
LOC: M LAB REF 16:38
PROVIDERS: ATTEND Nurse Practitioner Family
DX: M79.671 Pain in right foot (principal)

== ENCOUNTER → 2018-12-11 | Outpatient (REF) | payer OTHER ==
[~2018-12-11] MED LIST changes: -ASPI1TAB PO; +ASPI81TA26 PO
== END ==
LOC: M LAB REF 17:44
PROVIDERS: ATTEND Nurse Practitioner Family
DX: L02.612 Cutaneous abscess of left foot (principal)

== ENCOUNTER → 2019-02-04 | Outpatient (REF) | payer OTHER | LOC: M LAB REF 17:03 | PROVIDERS: ATTEND Nurse Practitioner Family | DX: L02.612 Cutaneous abscess of left foot (principal) ==

== ENCOUNTER → 2019-02-24 | Outpatient (CLI) | payer MEDICARE, OTHER ==
[~2019-02-24] MED LIST changes: +PLAV1TAB2 PO
--- NOTE | 2019-02-24 13:36 | REP ---
Bilateral lower extremity arterial duplex ultrasonography Right lower extremity: Right brachial artery peak systole 180 mmHg Right dorsalis pedis peak systole 140 mmHg. VETERINARY SCIENCE TEACHER peak systole 90 mmHg. Right AVA: 0.8 Peak Systolic Phasicity Velocity QUANTITATIVE RESEARCH ANALYST 135.1 biphasic Profunda 165.4 biphasic SFA prox 128.9 by biphasic SFA mid 302.4 monophasic SFA dist 96.4 monophasic Pop 37.6 monophasic JAYCEE prox 160.5 monophasic Tib/P tr 81 monophasic VETERINARY SCIENCE TEACHER pr 41.6 monophasic VETERINARY SCIENCE TEACHER dst 11.9 monophasic JAYCEE dst 43.1 monophasic Left lower extremity: Left brachial artery peak systole 180 mmHg. Left dorsalis pedis peak systole 90 mmHg. VETERINARY SCIENCE TEACHER peak systole: 80 mmHg AVA: 0.5 Peak Systolic Phasicity Velocity QUANTITATIVE RESEARCH ANALYST 115.7 triphasic Profunda 138.1 biphasic SFA prox 131.4 monophasic SFA mid 106 monophasic SFA dist 17.8 monophasic Pop 83.1 monophasic JAYCEE prox 49.6 monophasic Tib/P tr 34.9 monophasic VETERINARY SCIENCE TEACHER pr 16.3 monophasic VETERINARY SCIENCE TEACHER dst 13.1 monophasic JAYCEE dst 111.9 monophasic There is significant atheromatous plaque throughout the lower extremities bilaterally. On the right there are monophasic waveforms from the mid SFA distally. On the left there are monophasic wave forms from the proximal SFA distally. There are focal stenoses on the right at the mid SFA and at the proximal JAYCEE. A feeding vessel is identified at the right tibia - peroneal trunk. The the ABIs are abnormal bilaterally. Electronically Signed by Eric Neal MD 02/24/2019 01:28 P
== END ==
LOC: M RAD 09:49
PROVIDERS: ATTEND Surgery Vascular Surgery
DX: I70.235 Atherosclerosis of native arteries of right leg with ulceration of other part of foot (principal); I70.202 Unspecified atherosclerosis of native arteries of extremities, left leg; I70.221 Atherosclerosis of native arteries of extremities with rest pain, right leg

== ENCOUNTER → 2019-02-24 | Outpatient (CLI) | payer MEDICARE, OTHER ==
[2019-02-24 13:36] LABS: BASO # 0.1 10^3/uL (0.0-0.2); BASO % 1.3 % (0.0-1.0); EOS # 0.1 10^3/uL (0.0-0.50); EOS % 1.8 % (0.0-3.0); HEMATOCRIT 37.2 % (42.0-52.0); HEMOGLOBIN 12.4 g/dl (13.5-17.5); LYMPH # 1.7 10^3/uL (1.5-4.5); LYMPH % 21.7 % (24.0-44.0); MEAN CORPUSCULAR HEMOGLOBIN 28.6 pg (27.0-33.0); MEAN CORPUSCULAR HGB CONC 33.3 g/dl (32.0-36.5); MEAN CORPUSCULAR VOLUME 85.9 fl (80.0-96.0); MONO % 12.6 % (0.0-5.0); NEUTROPHILS # 4.9 10^3/uL (1.8-7.7); NEUTROPHILS % 62.3 % (36.0-66.0); PLATELET COUNT, AUTOMATED 240 10^3/uL (150-450); RED BLOOD COUNT 4.33 10^6/uL (4.30-6.10); WHITE BLOOD COUNT 7.9 10^3/uL (4.0-10.0)
[2019-02-24 13:59] LABS: BLOOD UREA NITROGEN 28 MG/DL (7-18); CALCIUM LEVEL 9.4 MG/DL (8.8-10.2); CARBON DIOXIDE LEVEL 28 MEQ/L (21-32); CHLORIDE LEVEL 105 MEQ/L (98-107); CREATININE FOR GFR 1.19 MG/DL (0.70-1.30); GLOMERULAR FILTRATION RATE > 60.0 (>35); GLUCOSE, FASTING 147 MG/DL (70-100); POTASSIUM SERUM 4.4 MEQ/L (3.5-5.1); SODIUM LEVEL 138 MEQ/L (136-145)
== END ==
LOC: M LAB 12:37
PROVIDERS: ATTEND Surgery Vascular Surgery
DX: I70.235 Atherosclerosis of native arteries of right leg with ulceration of other part of foot (principal); I70.202 Unspecified atherosclerosis of native arteries of extremities, left leg; I70.221 Atherosclerosis of native arteries of extremities with rest pain, right leg

== ENCOUNTER → 2019-02-26 | Outpatient (CLI) | payer MEDICARE, OTHER ==
[~2019-02-26] MED LIST changes: +CLOPIDOGREL 75 MG TAB As Ordered ONE; +HEPARIN 1,000 UNITS/ML 10ML VIAL (FOR RADIOLOGY& DIALYSIS ONLY) As Ordered ONE; +ISOVUE-300 61% 50ML VIAL (Q9967) As Ordered ONE; +LIDOCAINE 2% MDV 20 ML VIAL As Ordered ONE; +MIDAZOLAM INJ 2 MG/2 ML VIAL (J2250) As Ordered ONE; +NITROGLYCERIN IN D5W 25MG/250ML (100MCG/ML) As Ordered ONE; +fentaNYL 100 MCG/2 ML INJECTION (J3010) As Ordered ONE
--- NOTE | 2019-02-26 12:14 | ROOPDOC ---
[facility] Report Of Operation Report of Operation DATE OF PROCEDURE: 02/26/19 PREPROCEDURE DIAGNOSES: Atherosclerosis of the [place] arteries of the left lower extremity with rest pain and nonhealing ulcer of the first toe POSTPROCEDURE DIAGNOSES: Same PROCEDURE: 1. Ultrasound-guided access right common femoral artery 2. Left lower extremity arteriogram and runoff with select views of the popliteal artery and tibioperoneal trunk 3. Angioplasty of the superficial femoral artery after crossing chronic total occlusion with a 6 x 200 [place] balloon 4. Stenting of the distal SFA at Won's canal with a 6 x 120 drug-coated stent 5. Stenting of the mid proximal superficial femoral artery with a 6 x 40 Innova stent 6. Post-dilation of both stents with 6 x 200 [place] balloon 7. Angioplasty of the tibioperoneal trunk with a 3 x 100 [place] balloon 8. Completion arteriograms left lower extremity 9. Minx closure right common femoral artery SURGEON: Aleshia Kendrick MD ANESTHESIA: Local anesthesia, 10 mL lidocaine. Moderate intravenous conscious sedation was supervised by Dr. Kendrick. The patient was also independently supervised by a registered nurse assigned to the Department of radiology with automated blood pressure, EKG, and pulse oximetry. The sedation record is housed permanently in the hospital information system. The following is a conscious sedation record: Start time 10:08, stop time 12: 10, Versed 1.5 mg IV, fentanyl 75 g IV, heparin 5000 units IV. IV contrast: 60 mL Isovue 300 INDICATION FOR PROCEDURE: Mr. Caraballo is a very pleasant 83-year-old gentleman with severe bilateral peripheral vascular disease, worse in the left lower extremity, with left lower extremity rest pain and nonhealing ulcer of the first toe. Risks benefits and alternatives to a left lower extremity arteriogram and potential intervention were explained to the patient and he is agreeable to proceed. We asked him to hold his metformin the day often for 48 hours after the procedure. We told him if we were to place a stent we would start Plavix postop and he is agreeable to this. He also should continue his aspirin and statin ryland y. Informed consent was obtained. INTERPRETATION: 1. The inflow to the left lower extremity is widely patent through the iliac vessels and the common femoral artery profunda. 2. The superficial femoral artery has an area of 40% stenosis in the proximal t hird, followed by a very tight stenosis of about 80% just distal stenosis focally. Additionally there is an chronic occlusion approximately 10 cm at Won's canal that reconstituted through collaterals to the proximal popliteal artery which is calcified but not heavily stenotic. 3. The main runoff in the left lower extremity is through a very narrow tibioperoneal trunk into an extremely narrow peroneal artery. The distal aspect of the artery is more widely patent and fills mostly through collaterals from t he thigh, geniculate vessels and the calf. The anterior and posterior tibial arteries occluded no other origin and do not reconstitute distally. There is a great deal of collateral circulation in the calf. 4. After angioplasty and stenting, there is less than 10% residual stenosis in the proximal and distal superficial femoral artery. Flow into the collateral system and the peroneal artery is dramatically improved. 5. We attempted to cross into the peroneal artery but were unsuccessful due to zigzagging angles of the origin of the vessels down to the peroneal origin. We were able to cross into the origin of the posterior tibial and angioplasty the tibioperoneal trunk hoping to get better inflow to the peroneal artery but this caused some spasm to the peroneal artery. Nitroglycerin was administered and shortly thereafter there was less spasm but still some present. Were hopeful this will release with time. The main runoff is still the peroneal artery but it is barely fills through collaterals with minimal flow through the origin. This is the only runoff to the foot. There are still many small collaterals throughout the calf that supply the majority of the muscle. These are feeling much better after improving inflow. PROCEDURE: The patient was brought to the angiographic suite in stable condition. His bilateral groins were prepped and draped in a sterile fashion. Sedation was administered without complication. A timeout was performed. Local anesthesia was administered to the skin and subcutaneous tissue in the right groin and a microneedle was used to access the right common femoral artery under ultrasound guidance. A wire was passed through this access and a micro-sheath was placed and flushed with saline. Glidewire was advanced into the distal aorta under fluoroscopic guidance and the sheath was exchanged using a Seldinger technique for 6 Lao sheath. The sheath was flushed with saline. An Omni flushed catheter was used to go up and over the bifurcation into the left iliac system. A quick arteriogram showed that the iliac vessels are heavily calcified but patent. We then navigated the Glidewire and the Omni flushed catheter into the superficial femoral artery and runoff of the left lower extremity was performed, noting significant stenoses at the proximal mid and distal superficial femoral artery with a 10 cm occlusion at the distal superficial femoral artery at Won's canal. Reconstitution distal to the sister's extensive chronic collateral circulation. The anterior and posterior tibial arteries were occluded near the origin and do not reconstitute. The small peroneal arteries the main runoff to the foot. There are also significant small collaterals throughout the calf that seem to be supplying the muscle. Following this, we went up and over with his lungs 45 cm 6 Lao sheath and flushed the sheath with saline. We then angioplasty in the entire SFA with a 6 x 200 [place] balloon. Following this, there was improve flow but still significant residual stenosis and heavy calcified plaque at the proximal and distal SFA. Due to the chronic total occlusion and the heavy plaque, at the distal we utilized a 6 x 1 20 drug-coated stent and post-dilated this with the [place] balloon. We also placed a 6 x 40 Innova stent in the proximal SFA with good results and rapid flow following pulse stent placements and post dilations. Next we attempted to cross into the peroneal artery for about 45 minutes. We utilized a Glidewire glide cath and 018 wire and [place] an O18 glide cath and 018 wire and an O18 angled catheter but all were unsuccessful. We then aborted this and simply angioplastied tibioperoneal trunk which is very small with a 3 x 100 [place] b [place]oon. Following this, there was some spasm in the vessel which slightly released with 200 g nitroglycerin but still had some residual spasm that should resolve with time. The patient had dramatically improve flow to the foot through collaterals as well as through the peroneal artery. We would've liked to follow up in the anterior tibial or posterior tibial, but neither were able to be crossed. This concluded her procedure and minx closure device was deployed in the left common femoral artery after exchanging back for a short 6 Lao sheath. Good hemostasis was achieved. Pressure was held for 10 minutes. Sterile dressings were applied. The patient was taken back to recovery in stable condition. ESTIMATED BLOOD LOSS: Approximately 5 mL. COMPLICATIONS: None. PLAN: Will start Plavix 75 mg daily and the patient will take this a minimum of 60 days post stenting. We will see him back in 1 week to check his groin access site. ALESHIA KENDRICK MD Feb 26, 2019 12:14
== END | disposition home or self-care (01) ==
LOC: M IRPRO 08:18
PROVIDERS: ATTEND Surgery Vascular Surgery
DX: I70.222 Atherosclerosis of native arteries of extremities with rest pain, left leg (principal); I70.245 Atherosclerosis of native arteries of left leg with ulceration of other part of foot; L97.529 Non-pressure chronic ulcer of other part of left foot with unspecified severity; I73.9 Peripheral vascular disease, unspecified; I70.92 Chronic total occlusion of artery of the extremities
CPT/HCPCS: 37226; 37228; 75710; 99152; 99153; C1725; C1760; C1769; C1874; C1876; C1887; C1894; J2250; J3010; Q9967

== ENCOUNTER → 2019-09-16 | Outpatient (REF) | payer MEDICARE, OTHER ==
[~2019-09-16] MED LIST changes: -ASPI-222 PO; +ASPI-527 PO; -CLOPIDOGREL 75 MG TAB As Ordered ONE; -HEPARIN 1,000 UNITS/ML 10ML VIAL (FOR RADIOLOGY& DIALYSIS ONLY) As Ordered ONE; -ISOVUE-300 61% 50ML VIAL (Q9967) As Ordered ONE; -LIDOCAINE 2% MDV 20 ML VIAL As Ordered ONE; -MIDAZOLAM INJ 2 MG/2 ML VIAL (J2250) As Ordered ONE; -NITROGLYCERIN IN D5W 25MG/250ML (100MCG/ML) As Ordered ONE; -fentaNYL 100 MCG/2 ML INJECTION (J3010) As Ordered ONE
[2019-09-16 14:04] LABS: APPEARANCE, URINE CLEAR (CLEAR); BACTERIA, URINE AUTO NEGATIVE (NEGATIVE); BILIRUBIN, URINE AUTO NEGATIVE (NEGATIVE); BLOOD, URINE BLOOD NEGATIVE (NEGATIVE); COLOR, URINE YELLOW (YELLOW); GLUCOSE, URINE (UA) AUTO 3+ mg/dL (NEGATIVE); KETONE, URINE AUTO NEGATIVE (NEGATIVE); LEUKOCYTE ESTERASE, URINE AUTO NEGATIVE (NEGATIVE); NITRITE, URINE AUTO NEGATIVE (NEGATIVE); PROTEIN, URINE AUTO 2+ mg/dL (NEGATIVE); RBC, URINE AUTO 0 /HPF (0-3); SPECIFIC GRAVITY URINE AUTO 1.018 (1.002-1.035); SQUAMOUS EPITHELIAL CELL UR AU 0 /HPF (0-6); UROBILINOGEN, URINE AUTO 0.2 mg/dL (0.0-2.0); WBC, URINE AUTO 0 /HPF (0-3)
== END ==
LOC: M SMT 13:21
PROVIDERS: ATTEND Nurse Practitioner Family
DX: R35.0 Frequency of micturition (principal)
CPT/HCPCS: 51798; 81001; 87086; G0463

== ENCOUNTER → 2019-10-13 | Outpatient (CLI) | payer MEDICARE, OTHER ==
--- NOTE | 2019-10-13 15:25 | REP ---
Bilateral lower extremity arterial Doppler ultrasound: Right lower extremity: Brachial peak systole: 140 mmHg Dorsalis pedis peak systole : -- mmHg SCRAP WORKER peak systole: -- mmHg AVA peak systole :-- Velocity Phasicity INSTRUCTIONAL MEDIA SERVICES TECHNICIAN the 100 over biphasic Profunda 90-151 biphasic SFA prox 117 biphasic SFA mid 94 biphasic SFA dist 91-34 monophasic Pop occluded -- JAYECE prox 8 Monophasic Tib/P tr 10 Monophasic SCRAP WORKER pr 19-53 monophasic SCRAP WORKER dst 9 monophasic JAYCEE dst 51 monophasic Left lower extremity: Brachial peak systole: 150 mmHg Dorsalis pedis peak systole : -- mmHg SCRAP WORKER peak systole: 90 mmHg AVA peak systole : 0.67 Velocity Phasicity INSTRUCTIONAL MEDIA SERVICES TECHNICIAN 94 biphasic Profunda 120 biphasic SFA prox 108 biphasic SFA mid 91-167 biphasic SFA dist 83-71 biphasic Pop 82 biphasic JAYCEE prox 111-58 biphasic Tib/P tr 120-75 mono/biphasic SCRAP WORKER pr 50 monophasic SCRAP WORKER dst 21 monophasic JAYCEE dst 16 monophasic Impression: Right lower extremity. There is severe calcified plaque with acoustic shadowing. There is mild stenosis in the proximal profunda. The right popliteal/distal SFA are occluded with revascularization from the SCRAP WORKER, however, flow is very slow. The proximal right SCRAP WORKER there is 3:1 stenosis with trickle flow at the ankle. The right distal JAYCEE demonstrates good flow velocity but the vessel size is tiny. Left lower extremity: The patient is status post angioplasty and stent of the left SFA. Left INSTRUCTIONAL MEDIA SERVICES TECHNICIAN- mid SFA is improved. There is a mid SFA 2:1 stenosis . The distal SFA stent is patent. There is biphasic flow into the tibial/peroneal trunk. There is 2:1 stenosis in the proximal JAYCEE. The left distal calf/ankle vessels are very small with trickle flow. The wave forms have improved from 02/2019. There is now biphasic flow to the tibial peroneal trunk. However, there is minimal change below this level. Electronically Signed by Eric Neal MD 10/13/2019 03:17 P
== END ==
LOC: M RAD 10:19
PROVIDERS: ATTEND Physician Assistant
DX: I73.9 Peripheral vascular disease, unspecified (principal); I10 Essential (primary) hypertension; E11.9 Type 2 diabetes mellitus without complications; Z86.73 Personal history of transient ischemic attack (TIA), and cerebral infarction without residual deficits

== ENCOUNTER → 2019-10-21 | Outpatient (CLI) | payer MEDICARE ==
[2019-10-21 12:14] LABS: HEMATOCRIT 40.5 % (42.0-52.0); HEMOGLOBIN 13.6 g/dl (13.5-17.5); MEAN CORPUSCULAR HEMOGLOBIN 29.1 pg (27.0-33.0); MEAN CORPUSCULAR HGB CONC 33.6 g/dl (32.0-36.5); MEAN CORPUSCULAR VOLUME 86.7 fl (80.0-96.0); PLATELET COUNT, AUTOMATED 224 10^3/uL (150-450); RED BLOOD COUNT 4.67 10^6/uL (4.30-6.10); WHITE BLOOD COUNT 7.4 10^3/uL (4.0-10.0)
[2019-10-21 13:03] LABS: BLOOD UREA NITROGEN 21 MG/DL (7-18); CALCIUM LEVEL 9.4 MG/DL (8.8-10.2); CARBON DIOXIDE LEVEL 30 MEQ/L (21-32); CHLORIDE LEVEL 100 MEQ/L (98-107); CREATININE FOR GFR 1.21 MG/DL (0.70-1.30); GLOMERULAR FILTRATION RATE > 60.0 (>35); GLUCOSE, FASTING 412 MG/DL (70-100); POTASSIUM SERUM 5.1 MEQ/L (3.5-5.1); SODIUM LEVEL 136 MEQ/L (136-145)
== END ==
LOC: M LAB 10:57
PROVIDERS: ATTEND Physician Assistant
DX: Z01.818 Encounter for other preprocedural examination (principal); I70.213 Atherosclerosis of native arteries of extremities with intermittent claudication, bilateral legs

== ENCOUNTER → 2020-03-13 | Outpatient (CLI) | payer MEDICARE ==
[~2020-03-13] MED LIST changes: +GLIP10TA PO; +GLIP5TAB20 PO; +ISOS10TAB PO; +ISOS20TA PO; +ISOVUE-300 61% 50ML VIAL As Ordered ONE; +LIDOCAINE 1% MDV 20ML VIAL As Ordered ONE; +MAGN400T2 PO; +MIDAZOLAM INJ 2MG/2ML VIAL (J2250 PER 1MG) As Ordered ONE; +ROSU40TA4 PO; +XARE10TA PO; +amLODIPine 5 MG TAB PO PRN; +fentaNYL 100 MCG/2 ML INJECTION (J3010) As Ordered ONE; +hydrALAZINE 20MG/ML 1ML VIAL (J0360 PER 20MG) As Ordered ONE; +hydrALAZINE 20MG/ML 1ML VIAL (J0360 PER 20MG) IV ONE; +hydrALAZINE 20MG/ML 1ML VIAL (J0360 PER 20MG) IV PRN
[2020-03-13 09:23] LABS: HEMATOCRIT 42.6 % (42.0-52.0); MEAN CORPUSCULAR HEMOGLOBIN 28.9 pg (27.0-33.0); MEAN CORPUSCULAR HGB CONC 32.9 g/dl (32.0-36.5); MEAN CORPUSCULAR VOLUME 87.8 fl (80.0-96.0); PLATELET COUNT, AUTOMATED 153 10^3/uL (150-450); RED BLOOD COUNT 4.85 10^6/uL (4.30-6.10); WHITE BLOOD COUNT 7.4 10^3/uL (4.0-10.0)
[2020-03-13 09:37] LABS: BLOOD UREA NITROGEN 22 MG/DL (7-18); CALCIUM LEVEL 9.3 MG/DL (8.8-10.2); CARBON DIOXIDE LEVEL 29 MEQ/L (21-32); CHLORIDE LEVEL 104 MEQ/L (98-107); CREATININE FOR GFR 1.06 MG/DL (0.70-1.30); GLOMERULAR FILTRATION RATE > 60.0 (>35); GLUCOSE, FASTING 266 MG/DL (70-100); POTASSIUM SERUM 4.5 MEQ/L (3.5-5.1); SODIUM LEVEL 138 MEQ/L (136-145)
--- NOTE | 2020-03-13 11:31 | ROOPDOC ---
[facility] Report Of Operation Report of Operation DATE OF PROCEDURE: 03/13/20 PREPROCEDURE DIAGNOSES: Atherosclerosis in the [place] arteries with lifestyle limiting claudication POSTPROCEDURE DIAGNOSES: Same PROCEDURE: 1. Ultrasound-guided access left common femoral artery 2. Aortoiliofemoral arteriogram 3. Selection of right common femoral artery and SFA with right lower extremity arteriogram 4. Selection of right popliteal artery with right lower extremity runoff 5. Attempt to cross chronic total occlusion right popliteal artery, aborted 6. Angioplasty right superficial femoral artery was 6 x 200 [place] balloon 7. Stent proximal and mid right superficial femoral artery with 7 x 150 Innova stent 8. Post-dilation stent right superficial femoral artery with 6 x 200 [place] balloon 9. Completion arteriograms 10. Mynx closure left common femoral artery SURGEON: Bar Kendrick MD ANESTHESIA: Local anesthesia 5 mL lidocaine. Moderate intravenous conscious sedation was supervised by Dr. Kendrick. The patient was independently monitored by a registered nurse assigned to the Department of radiology using automated blood pressure, EKG, and pulse oximetry. The detailed sedation record is permanently stored in the hospital information system. The following is the brief sedation record: Start time 09:39, stop time 10:56, Versed 2.5 mg IV, fentanyl 125 g IV, heparin 3000 units IV, hydralazine 30 mg IV. INDICATION FOR PROCEDURE: This is a very pleasant 84-year-old gentleman with lif estyle limiting claudication of the right lower extremity secondary to atherosclerosis of the [place] arteries. Risks benefits and alternatives to an arteriogram potential intervention were explained to the patient needs agreeable to proceed. Informed consent was obtained. INTERPRETATION: 1. The distal aorta and common iliac arteries are calcified with plaque but no flow-limiting stenoses are noted. There is flow into the hypogastric arteries and brisk flow through the external iliac arteries as well. 2. The right common femoral artery is mildly ectatic with plaque, but overall widely patent with no flow-limiting stenoses noted. There is mild plaque noted at the origin of the profunda but good flow through the profunda with excellent collaterals down below the knee. The SFA is patent throughout, but has an area of 40-50% stenosis in the proximal aspect of the vessel approximately 10 cm distal to the origin, and then in the mid SFA there is a focal tight stenosis of 80-90%. In the distal SFA, there are several focal stenoses of 30-40%. 3. The popliteal artery is patent at its origin, then occludes due to bulky heavy irregular plaque and then reconstitutes in the mid and distal popliteal artery from collaterals from the profunda and above the knee in the SFA. These collaterals are large and chronic. Outflow is exclusively through the peroneal artery. I do not visualize the anterior tibial artery proximally or distally. The posterior tibial artery occludes near its origin. The peroneal artery gives collaterals at the ankle to help fill the foot. There are also extensive smaller collaterals through the calf muscle as well mostly supplied by the genicular vessels. 4. After angioplasty and stenting and post-dilation of the right proximal and mid superficial femoral artery, there is widely patent flow through the vessel with no extravasation, embolization, or dissection. Prior to stenting, there were 2 flow-limiting dissections at the areas of heaviest plaque and stenosis. After angioplasty of the distal SFA, there is widely patent flow with no significant residual stenosis, embolization, extravasation, or dissection. Improve flow was noted through the collaterals after angioplasty and stenting. REPORT OF OPERATION: The patient was brought to the angiographic suite in stable condition. His bilateral groins were prepped and draped in sterile fashion. A timeout was performed. Sedation was administered without complication. The patient did not take his antihypertensives prior to the procedure this morning, so several doses of hydralazine IV were given to manage his blood pressure. This, in combination with the sedation, successfully manage the blood pressure in the early portion procedure, but towards the end of the procedure, the patient became hypertensive again, additional hydralazine was given, and we will plan to give Norvasc 5 mg in recovery as well. Local anesthesia was administered to the skin and subcutaneous tissue over the left common femoral artery. A microneedle was used to access the artery under ultrasound guidance. A wire was passed through this access and the needle was removed. A 4 [place] glide sheath was placed and flushed with saline. A Glidewire and Omni Flush catheter were advanced into the distal aorta under fluoroscopic guidance. An aortoiliofemoral arteriogram was performed, please interpretation above. We then went up and over the bifurcation with the Glidewire and the Omni Flush catheter and selected the right common femoral artery and superficial femoral artery. Right lower extremity arteriogram was performed. We then advanced the Glidewire and a [place] catheter into the distal popliteal artery and a runoff of the right low er extremity was performed. Please interpretation of these arteriograms above. He then spent about 10-15 minutes trying to cross the chronic total occlusion and irregular plaque in the proximal and mid popliteal artery. Unfortunately, despite our best efforts, we were only able to cross in a subintimal planing could not reenter the true lumen. Completion arteriograms confirm there was no extravasation. This was aborted. We then advanced a 6 x 45 destination sheath over the wire and exchanged for a short 6 Vietnamese sheath. This sheath was flushed with saline. A 6 x 200 [place] balloon was used angioplasty the length of the SFA. Three-minute inflations were performed. Distally, we had excellent patency, no embolization extravasation or dissection. In the mid and proximal aspects where there was the heaviest areas of focal stenosis, there were flow limiting dissections. A 7 x 150 Innova stent was placed across both areas and postdilated with a 6 x 200 [place] balloon. Following this, there was widely patent flow t hroughout the superficial femoral artery with improved flow into the collaterals around the knee. We then exchanged the sheath for short 6 Vietnamese sheath and flushed the sheath with saline. A Mynx closure device was deployed at the left common femoral artery under fluoroscopic guidance with good hemostasis. Pressure was held for 5 minutes postprocedure and the patient was taken recovery in stable condition after sterile dressings were applied. He tolerated the procedure and the sedation well. ESTIMATED BLOOD LOSS: Approximately 5 mL. COMPLICATIONS: None. PLAN: Okay for patient to resume his home diet and medications, including a spirin and Xarelto. He will receive 1 dose of Plavix 75 mg in recovery, but no prescription. Subsequent anticoagulation will be managed with Xarelto. We will see how the patient does with improvement of flow through the superficial femoral artery and improve flow into the collaterals around the knee. If the patient is still having significant lifestyle limiting claudication, we can consider an above-knee to below-knee bypass, but this is not a simple surgery in this patient. First, as an octogenarian with multiple medical comorbidities, he has increased morbidity and mortality. Second, he has single vessel runoff through peroneal artery with limited flow through the tibioperoneal trunk and no flow in the distal popliteal artery. This could make maintaining patency through a bypass challenging. Limited outflow can cause early failure of bypass grafts. Therefore, if the patient can manage his claudication with improved flow into his collaterals and a walking program, this would be the best option. We will discuss this with him in clinic and see how he does postprocedure. We appreciate the opportunity to purchase patent care of this patient. BAR KENDRICK MD Mar 13, 2020 11:31
[2020-03-13 11:45] VITALS: BP 192/84
[2020-03-13 13:47] VITALS: BP 167/74
== END ==
LOC: M IRPRO 08:33
PROVIDERS: ATTEND Surgery Vascular Surgery
DX: I70.211 Atherosclerosis of native arteries of extremities with intermittent claudication, right leg (principal); I70.92 Chronic total occlusion of artery of the extremities
CPT/HCPCS: 37226; 75710; 75774; 80048; 85027; 99152; 99153; C1725; C1760; C1769; C1876; C1887; C1894; J0360; J1644; J2250; J3010; Q9967

== ENCOUNTER → 2020-04-26 | Outpatient (CLI) | payer MEDICARE ==
[~2020-04-26] MED LIST changes: -AMLO10TA5 PO; +AMLO1TAB24 PO; +AMLO1TAB25 PO; -AMLO5TAB6 PO; -ISOVUE-300 61% 50ML VIAL As Ordered ONE; -LIDOCAINE 1% MDV 20ML VIAL As Ordered ONE; -MIDAZOLAM INJ 2MG/2ML VIAL (J2250 PER 1MG) As Ordered ONE; +PANT40TA29 PO; -PANT40TA3 PO; -amLODIPine 5 MG TAB PO PRN; -fentaNYL 100 MCG/2 ML INJECTION (J3010) As Ordered ONE; -hydrALAZINE 20MG/ML 1ML VIAL (J0360 PER 20MG) As Ordered ONE; -hydrALAZINE 20MG/ML 1ML VIAL (J0360 PER 20MG) IV ONE; -hydrALAZINE 20MG/ML 1ML VIAL (J0360 PER 20MG) IV PRN
--- NOTE | 2020-05-31 09:33 | REP ---
HISTORY: Atherosclerosis, peripheral vascular disease. FINDINGS: Ankle brachial indices could not be achieved on the right. There is heavy calcification. Ankle brachial indices are not felt to be accurate. It is measured on the left at 0.94. There is severe plaquing seen bilaterally. Monophasic waveforms are seen distal to the right popliteal artery and distal to the left tibioperoneal trunk. Stents are visible at the right superficial femoral artery mid level, the left mid superficial femoral artery, the left distal superficial femoral artery. The right popliteal artery is felt to be occluded and revascularized via the sural artery. Reverse flow is seen in the sural artery in the proximal JAYCEE. Stenosis is noted in the left posterior tibial artery trunk with 3:1 velocity ratio. The left posterior tibial artery is occluded and shows reversed revascularized flow distally. There is a trickle of flow in the right posterior tibial artery. BILATERAL LOWER EXTREMITY DOPPLER VELOCITY CHART PSV RIGHT (cm/s) PSV LEFT (cm/s) ENDO TECH 132 138 Profunda 168 128 Proximal SFA 133 167 Mid-SFA 76 162 Distal SFA 58 99 Popliteal Occluded/Reversed 11 109 Proximal JAYCEE Reversed 91 Tibioperoneal trunk 55 79/205 Proximal AIRCRAFT BODY REPAIRER 17 255 Distal AIRCRAFT BODY REPAIRER 9 Revascularized 44 Distal JAYCEE 18 45 MTDD
== END ==
LOC: M RAD 09:00
PROVIDERS: ATTEND Surgery Vascular Surgery
DX: I70.213 Atherosclerosis of native arteries of extremities with intermittent claudication, bilateral legs (principal)

== ENCOUNTER → 2020-06-10 | Outpatient (REF) ==
--- NOTE | 2020-06-10 11:53 | REPVR ---
PROCEDURE INFORMATION: Exam: XR Chest, 1 View Exam date and time: 06/10/2020 10:56 AM Age: 84 years old Clinical indication: Other: Morgue case; Additional info: Autopsy TECHNIQUE: Imaging protocol: XR of the chest Views: 1 view. COMPARISON: No relevant prior studies available. FINDINGS: Lungs: An area of consolidation versus a mass measuring 27 x 60 mm seen in the right mid lung. There is a questionable mass measuring 54 x 49 mm involving left mid lung. There is a questionable density overlying the left rib base. Pleural space: Unremarkable. No pleural effusion. No pneumothorax. Heart/Mediastinum: Unremarkable. No cardiomegaly. Bones/joints: There are sternal sutures. Rib fractures possibly pathologic are noted in the right posterior 3rd, 4th, 7th, 8th and 9th ribs at least. The 3rd rib at least demonstrates a gap between the fragments measuring 14 mm. The 8th and 9th ribs demonstrates suspected gaps in the ribs suspicious for lytic lesions. Soft tissues: There is extensive subcutaneous emphysema. This limits evaluation of the lung parenchyma. IMPRESSION: 1. Right-sided rib fractures possibly pathologic with possible lung masses or consolidations. 2. Extensive subcutaneous emphysema. 3. Consider CT scanning for further evaluation as the subcutaneous emphysema makes evaluation of the chest limited. 4. A critical call is not being made given the clinical history. Electronically signed by: Brian Howard On 06/10/2020 11:53:29 AM
--- NOTE | 2020-06-10 11:55 | REPVR ---
PROCEDURE INFORMATION: Exam: XR Pelvis Exam date and time: 06/10/2020 10:57 AM Age: 84 years old Clinical indication: Other: Morgue case; Additional info: Autopsy TECHNIQUE: Imaging protocol: XR pelvis. Views: 1 or 2 view. COMPARISON: No relevant prior studies available. FINDINGS: Bones/joints: There is a zipper artifact on the left. There are fractures of the right superior inferior pubic ramus questionably lytic. Soft tissues: Surgical clips are seen in the left groin as well as the lower pelvis. Vasculature: There are vascular calcifications. There is a left and right femoral artery stent. IMPRESSION: Suspect lytic lesions with fractures of the superior inferior pubic ramus on the right. Consider CT for confirmation. Electronically signed by: Brian Howard On 06/10/2020 11:54:55 AM
--- NOTE | 2020-06-10 11:55 | REPVR ---
PROCEDURE INFORMATION: Exam: XR Right Femur Exam date and time: 06/10/2020 10:56 AM Age: 84 years old Clinical indication: Other: Morgue case; Additional info: Autopsy TECHNIQUE: Imaging protocol: XR Right femur. Views: 2 views. COMPARISON: No relevant prior studies available. FINDINGS: Bones/joints: Unremarkable. No acute fracture. Soft tissues: Unremarkable. Vasculature: Arterial stents are noted. IMPRESSION: No acute findings. PROCEDURE INFORMATION: Exam: XR Left Femur Exam date and time: 06/10/2020 10:56 AM Age: 84 years old Clinical indication: Other: Morgue case; Additional info: Autopsy TECHNIQUE: Imaging protocol: XR Left femur. Views: 2 views. COMPARISON: No relevant prior studies available. FINDINGS: Bones/joints: Zipper gives rise to artifact overlying the pubic rami. No fracture. Soft tissues: Unremarkable. Vasculature: Arterial stents are seen. IMPRESSION: No acute findings. Electronically signed by: Brian Howard On 06/10/2020 11:55:52 AM
--- NOTE | 2020-06-10 11:58 | REPVR ---
PROCEDURE INFORMATION: Exam: XR Right Tibia and Fibula Exam date and time: 06/10/2020 10:59 AM Age: 84 years old Clinical indication: Other: Morgue case; Additional info: Autopsy TECHNIQUE: Imaging protocol: XR Right tibia and fibula. Views: 2 views. COMPARISON: CR Femur BILATERAL 06/10/2020 11:17 AM FINDINGS: Bones/joints: Normal. Soft tissues: Normal. Vasculature: There are vascular calcifications. This is a limited study. The frontal view fails to demonstrate the lower quarter of the calf and the lateral view fails to demonstrate top corner of the calf. IMPRESSION: Limited study please see above. PROCEDURE INFORMATION: Exam: XR Left Tibia and Fibula Exam date and time: 06/10/2020 10:59 AM Age: 84 years old Clinical indication: Other: Morgue case; Additional info: Autopsy TECHNIQUE: Imaging protocol: XR Left tibia and fibula. Views: 2 views. COMPARISON: CR Femur BILATERAL 06/10/2020 11:17 AM FINDINGS: Bones/joints: Normal. Soft tissues: Normal. Vasculature: There are vascular calcifications. The lateral view fails to demonstrate the top of the tibia and fibula. The frontal view fails to demonstrate the lower 3rd of the calf. IMPRESSION: Limited study. Please see above. Electronically signed by: Brian Howard On 06/10/2020 11:58:06 AM
--- NOTE | 2020-06-10 12:01 | REPVR ---
PROCEDURE INFORMATION: Exam: XR Skull, Less Than 4 Views Exam date and time: 06/10/2020 10:58 AM Age: 84 years old Clinical indication: Other: Morgue case; Additional info: Autopsy TECHNIQUE: Imaging protocol: XR of the skull, less than 4 views. COMPARISON: No relevant prior studies available. FINDINGS: Sinuses: Well aerated. No opacification. Bones/joints: There appears to be diffuse extra-axial air. No fracture or obvious lytic lesion. There is a suspected fracture of the mid right clavicle. This area was not well seen on the chest x-ray. Soft tissues: There is extensive subcutaneous emphysema. IMPRESSION: Unremarkable. Consider CT for confirmation of the intracranial air and for better evaluation of the bones of clinically indicated. Electronically signed by: Brian Howard On 06/10/2020 12:01:53 PM
--- NOTE | 2020-06-10 12:02 | REPVR ---
PROCEDURE INFORMATION: Exam: XR Cervical Spine, 2 or 3 Views Exam date and time: 06/10/2020 10:56 AM Age: 84 years old Clinical indication: Other: Morgue case; Additional info: Autopsy TECHNIQUE: Imaging protocol: XR of the cervical spine, 2 or 3 views. COMPARISON: MRA CAROTID W/O FOL WITH 06/29/2018 10:53 AM FINDINGS: Vertebrae: The frontal view does not encompass the entire cervical spine. Only part is C4 through C7 is seen. There is no definite fracture, dislocation or lytic lesion on this very limited exam. Soft tissues: Unremarkable. Other findings: Lateral view does not demonstrate C5 through C7 due to artifact from the shoulders. IMPRESSION: Of what can be seen there is extensive subcutaneous emphysema and arthritis. There is no definite abnormality but this is a very limited examination CT scan should be performed if clinically indicated further evaluation. Electronically signed by: Brian Howard On 06/10/2020 12:03:04 PM
== END ==
LOC: M LAB 09:25